=== PATIENT | female | born 1960 | race Caucasian/White ===

== ENCOUNTER → 2017-08-06 | Outpatient (CLI) | payer OTHER ==
--- NOTE | 2017-08-07 16:47 | WOMENS IMAGING REPORT ---
EXAM DESCRIPTION: 3D SCREENING MAMMO BILAT COMPLETED DATE/TIME: 08/06/2017 3:54 pm REASON FOR STUDY: ROUTINE SCREENING; Z12.31 Z12.31 ENCNTR SCREEN MAMMOGRAM FOR MALIGNANT NEOPLASM O F AN COMPARISON: 2011 to 2015 TECHNIQUE: Standard craniocaudal and mediolateral oblique views of each breast recorded using digita l acquisition and breast tomosynthesis. LIMITATIONS: None. FINDINGS: No masses, calcifications or architectural distortion. No areas of suspicion. Read with the assistance of CAD. .[facility] - R2 Cenova Version 1.3 .[facility] Imaging - R2 Cenova Version 1.3 .[facility] - R2 Cenova Version 2.4 .[facility] - R2 Cenova Version 2.4 .[facility] - R2 Log Check Scaler Version 9.2 IMPRESSION: NORMAL MAMMOGRAM. BIRADS 1. BREAST DENSITY: b. There are scattered areas of fibroglandular density. BIRAD: 1 NEGATIVE RECOMMENDATION: ROUTINE SCREENING COMMENT: The patient has been notified of the results by letter per SA requirements. Additional no tification policies are in place for contacting patient with suspicious or incomplete findings. Quality ID #[id number]: The [employer] recommends an annual screening mammogram for women aged 40 years or over. This facility utilizes a reminder system to ensure that all patients receive reminder letters, and/or direct phone calls for appointments. This includes reminders for routine scr eening mammograms, diagnostic mammograms, or other Breast Imaging Interventions when appropriate. Th is patient will be placed in the appropriate reminder system. The [employer] (ACR) has developed recommendations for screening MRI of the breast s in certain patient populations, to be used in conjunction with mammography. Breast MRI surveillanc e may be appropriate for women with more than 20% lifetime risk of developing breast cancer as deter mined by genetic testing, significant family history of the disease, or history of mantle radiation f or Hodgkins Disease. ACR Practice Guidelines 2008. DBT Technology DBT is a type of tomographic mammography. With conventional mammography, overlapping breast tissue ma y make lesions difficult to detect, even with good compression. DBT uses an x-ray tube that rotates a round the breast, taking images at different angles. These images are then combined to create thin sl ices of the breast that the radiologist can view as a 3D reconstruction. The [employer] unit can perform full-field digital mammograms (2D imaging); or DBT (3D imaging); or both, in a combination mode that quickly performs both the mammogram and the tomosynthesis scan while the breast is still compressed. PQRS 6045F: Fluoroscopic imaging is not utilized for breast tomosynthesis. TECHNICAL DOCUMENTATION: FINDING NUMBER: (1) ASSESSMENT: (1) JOB ID: [id number] [employer]- All Rights Reserved Reading location - IP/workstation name: [email or web address]
== END ==
LOC: WI 15:36
PROVIDERS: ATTEND Nurse Practitioner
DX: Z12.31 Encounter for screening mammogram for malignant neoplasm of breast (principal)
CPT/HCPCS: 77063; 77067

== ENCOUNTER 2019-04-08 10:04 | Observation (INO) | payer OTHER ==
[2019-04-08] MEDS ORDERED: ONDANSETRON HCL INJ/PF 4 MG/2 ML SDV IV ONE (11:20)
[2019-04-08] MEDS ORDERED: ACETAMINOPHEN 325 MG TABLET PO ONE (11:20)
--- NOTE | 2019-04-08 11:27 | ER Document Report ---
ED General - General Chief Complaint: Headache Stated Complaint: BLOOD PRESSURE ISSUES Time Seen by Provider: 04/08/19 11:09 Primary Care Provider: CHERRIE TOWNSEND FNP [Primary Care Provider] - Follow up as needed TRAVEL OUTSIDE OF THE [place] IN LAST 30 DAYS: No - HPI Notes: Patient is a 59-year-old female with a history of hypertension and hypercholesterolemia who presents complaining of right-sided facial pressure and headache that began initially at 230 yesterday afternoon. Patient states that the symptoms improved after a few hours, but returned last night. Patient s tates that she woke up this morning with continued pressure on the right side. She also has had decreased sensation to the right side of her body and some weakness noted to the arm and leg on the right side since since the HERNDON began. Patient states that this is not the worst headache of her life and did not start as a thunderclap. She does have light sensitivity associated. Patient states that she is able to eat and drink without difficulty. She is urinating normally and having normal bowel movements. Denies drug allergies. No recent illness. She is not on any blood thinning medications. No history of CVA, TIA, migraines, CAD, DVT, PE, DM. Denies any fever, head injury, neck pain, changes in speech/mentation/hearing, URI, sore throat, chest pain, palpitations, syncope, cough, shortness of breath, wheeze, dyspnea, abdominal pain, nausea/vomiting/diarrhea, urinary retention, dysuria, hematuria, loss of control of bowel or bladder, saddle anesthesia, muscle paralysis, or rash. - Related Data Allergies/Adverse Reactions: No Known Allergies Allergy (Verified 04/08/19 10:10) Past Medical History - Social History Smoking Status: Never Smoker Chew tobacco use (# tins/day): No Frequency of alcohol use: None Drug Abuse: None Family History: Reviewed & Not Pertinent Patient has suicidal ideation: No Patient has homicidal ideation: No Review of Systems - Review of Systems -: Yes All other systems reviewed and negative Physical Exam - Vital signs Vitals: Temp Pulse Resp BP Pulse Ox 98.6 F 86 16 140/76 H 98 04/08/19 10:07 04/08/19 10:07 04/08/19 10:07 04/08/19 10:07 04/08/19 10:07 - Notes Notes: PHYSICAL EXAMINATION: GENERAL: Well-appearing, well-nourished and in no acute distress. A&Ox4. Answers questions appropriately. HEAD: Atraumatic, normocephalic. Non-tender. EYES: Pupils equal round and reactive to light, extraocular movements intact, sclera anicteric, conjunctiva are normal. No nystagmus. vis luna intact. ENT: EAC clear b/l. TM's intact b/l without erythema, fluid, or perforation. Nares patent and without discharge. oropharynx clear without exudates. No tonsilar hypertrophy or erythema. Moist mucous membranes. No sinus tenderness. NECK: Normal range of motion, supple without lymphadenopathy. No rigidity/meningismus. No midline tenderness. LUNGS: Breath sounds clear to auscultation bilaterally and equal. No wheezes rales or rhonchi. HEART: Regular rate and rhythm without murmurs, rubs, gallops. ABDOMEN: Soft, nontender, nondistended abdomen. No guarding, no rebound. Normal bowel sounds present. No CVA tenderness bilaterally. Musculoskeletal: Ext's b/l: FROM to passive/active. Strength 4+/5 to the RUE/RLE vs 5+/5 to the left side. No deficits noted. No bony tenderness of extremities. Extremities: No cyanosis, clubbing, or edema b/l. Peripheral pulses 2+. Capillary refill less than 2 seconds. NEUROLOGICAL: NIH 1(for dec sensation) without noting the strength differences R weaker than left as drift is negative. GCS 15. Cranial nerves grossly intact. Normal speech. Reflexes 2+ b/l. LENCHO's negative. PSYCH: Normal mood, normal affect. SKIN: Warm, Dry, normal turgor, no rashes or lesions noted. Course - Re-evaluation Re-evalutation: 04/08/19 12:39 Re-evaluation, pt has improvement in sensation, but continues to have light head pressure and light sensitivity. Labs/imaging unremarkable. Vitals acceptable. 04/08/19 12:50 I did speak with Dr. Murray who will accept pt to [facility] for TIA w/u. Pt in agreement with plan. - Vital Signs Vital signs: Temp Pulse Resp BP Pulse Ox 98.6 F 86 16 140/76 H 98 04/08/19 10:07 04/08/19 10:07 04/08/19 10:07 04/08/19 10:07 04/08/19 10:07 - Laboratory Result Diagrams: 04/08/19 11:30 04/08/19 11:30 Laboratory results interpreted by me: 04/08/19 11:30 Glucose 173 H Discharge - Discharge Clinical Impression: TIA (transient ischemic attack) Headache Qualifiers: Headache type: unspecified Headache chronicity pattern: acute headache Intractability: not intractable Qualified Code(s): R51 - Headache Condition: Stable Disposition: ADMITTED INPATIENT Admitting Provider: Terri (Hospitalist) Unit Admitted: IMCU Referrals: CHERRIE TOWNSEND FNP [Primary Care Provider] - Follow up as needed
[2019-04-08 11:43] LABS: ABSOLUTE EOSINOPHILS # (AUTO) 0.1 10^3/uL (0.0-0.6); ABSOLUTE LYMPHOCYTES (AUTO) 1.6 10^3/uL (0.5-4.7); ABSOLUTE MONOCYTES (AUTO) 0.3 10^3/uL (0.1-1.4); ABSOLUTE NEUT (AUTO) 5.9 10^3/uL (1.7-8.2); BASOPHILS % (AUTO) 0.6 % (0-2); EOSINOPHILS % (AUTO) 0.8 % (0-6); HEMATOCRIT 41.7 % (36.0-47.0); HEMOGLOBIN 14.7 g/dL (12.0-15.5); LYMPHOCYTES % (AUTO) 20.7 % (13-45); MEAN CORPUSCULAR HEMOGLOBIN 30.9 pg (27.0-33.4); MEAN CORPUSCULAR HGB CONC 35.1 g/dL (32.0-36.0); MEAN CORPUSCULAR VOLUME 88 fl (80-97); MONOCYTES % (AUTO) 3.8 % (3-13); PLATELET COUNT 219 10^3/uL (150-450); RED BLOOD COUNT 4.74 10^6/uL (3.72-5.28); RED CELL DISTRIBUTION WIDTH 12.9 % (11.5-14.0); SEGMENTED NEUTROPHILS % (AUTO) 74.1 % (42-78); TOTAL CELLS COUNTED % (AUTO) 100 %
[2019-04-08 11:48] LABS: PROTHROMBIN TIME 13.2 SEC (11.4-15.4)
[2019-04-08 11:49] LABS: PARTIAL THROMBOPLASTIN TIME 26.6 SEC (23.5-35.8)
--- NOTE | 2019-04-08 11:56 | RADIOLOGY REPORT (SQ) ---
EXAM DESCRIPTION: CT HEAD WITHOUT COMPLETED DATE/TIME: 04/08/2019 11:44 am REASON FOR STUDY: left headache, feeling weak rt side COMPARISON: None. TECHNIQUE: Axial images acquired through the brain without intravenous contrast. Images reviewed wi th bone, brain and subdural windows. Additional sagittal and coronal reconstructions were generated. Images stored on PACS. All CT scanners at this facility use dose modulation, iterative reconstruction, and/or weight based d osing when appropriate to reduce radiation dose to as low as reasonably achievable (ALARA). [facility]: Dose Right [facility]: CareDose [facility]: Dose Right [facility]: Teradose 4D [facility]: Silentsoft RADIATION DOSE: CT Rad equipment meets quality standard of care and radiation dose reduction techniq ues were employed. CTDIvol: 53.2 mGy. DLP: 1070 mGy-cm. mGy. LIMITATIONS: None. FINDINGS: There is no acute intracranial hemorrhage, vascular territorial infarct, extra-axial fluid collection, mass effect, or midline shift. There is no effacement of cerebral sulci or basal subara chnoid cisterns. The wang-white matter differentiation is preserved. The caliber the ventricles is concordant with the degree of sulcation. The orbits and globes are intact. The paranasal sinuses are clear. There is no fracture of the calv arium. IMPRESSION: No acute intracranial abnormality. EVIDENCE OF ACUTE STROKE: NO. COMMENT: Quality ID # [id number]: Final reports with documentation of one or more dose reduction techniques (e.g., Automated exposure control, adjustment of the mA and/or kV according to patient size, use of iterative reconstruction technique) TECHNICAL DOCUMENTATION: JOB ID: [id number] [employer]- All Rights Reserved Reading location - IP/workstation name: [email or web address]-
[2019-04-08 12:03] LABS: ALBUMIN 4.5 g/dL (3.5-5.0); ALKALINE PHOSPHATASE 109 U/L (38-126); ANION GAP 9 (5-19); ASPARTATE AMINO TRANSFERASE 23 U/L (14-36); BILIRUBIN,DIRECT 0.2 mg/dL (0.0-0.4); BILIRUBIN,TOTAL 0.6 mg/dL (0.2-1.3); BLOOD UREA NITROGEN 18 mg/dL (7-20); CARBON DIOXIDE 26 mmol/L (22-30); CHLORIDE 106 mmol/L (98-107); GLUCOSE 173 mg/dL (75-110); POTASSIUM 4.5 mmol/L (3.6-5.0); TOTAL PROTEIN 7.7 g/dL (6.3-8.2)
[2019-04-08 13:43] LABS: APPEARANCE,URINE SLIGHTLY-CLOUDY; BILIRUBIN,URINE NEGATIVE (NEGATIVE); COLOR,URINE STRAW; GLUCOSE, URINE 500 mg/dL (NEGATIVE); KETONES,URINE NEGATIVE (NEGATIVE); PROTEIN,URINE NEGATIVE (NEGATIVE); URINE SPECIFIC GRAVITY 1.004; UROBILINOGEN,URINE NEGATIVE mg/dL (<2.0)
[2019-04-08] MEDS ORDERED: ONDANSETRON HCL INJ/PF 4 MG/2 ML SDV IV PRN (13:44)
[2019-04-08] MEDS ORDERED: TEMAZEPAM 7.5 MG CAPSULE PO PRN (13:44)
[2019-04-08] MEDS ORDERED: IPRATROPIUM/ALBUTEROL 0.5-2.5 MG/3 ML AMPUL NEB PRN (13:44)
[2019-04-08] MEDS ORDERED: MAG HYDROX/AL HYDROX/SIMETH SUSP 30 ML UDCUP PO PRN (13:44)
[2019-04-08] MEDS ORDERED: ACETAMINOPHEN 325 MG TABLET PO PRN (13:44)
[2019-04-08] MEDS ORDERED: PROMETHAZINE HCL INJ 25 MG/1 ML VIAL IV PRN (13:44)
[2019-04-08] MEDS ORDERED: OXYCODONE-ACETAMINOPHEN 5-325 MG TABLET PO PRN (13:44)
[2019-04-08] MEDS ORDERED: HYDRALAZINE HCL INJ/PF 20 MG/1 ML SDV IV PRN (13:48)
[2019-04-08] MEDS ORDERED: METOPROLOL TARTRATE PF/INJ 5 MG/5 ML SDV IV PRN (13:48)
[2019-04-08] MEDS ORDERED: HEPARIN SOD (PORCINE) 5,000 UNIT/ML 1 ML VIAL SUBCUT SCH (14:00)
[2019-04-08 14:22] LABS: CHOLESTEROL 261.56 mg/dL (0-200); TRIGLYCERIDES 251 mg/dL (<150)
[2019-04-08 14:34] LABS: DIRECT LDL 173 mg/dL (<100); VLDL CHOLESTEROL 50.2 mg/dL (10-31)
--- NOTE | 2019-04-08 15:11 | RADIOLOGY REPORT (SQ) ---
EXAM DESCRIPTION: MRA HEAD WITHOUT COMPLETED DATE/TIME: 04/08/2019 2:55 pm REASON FOR STUDY: Rt sided weakness and headache COMPARISON: None. TECHNIQUE: Axial 3-D obfu-am-aiowgw acquisition imaging performed through the brain in the area of t he [place] of [place]. Images reformatted using 3-D MIPS. LIMITATIONS: None. FINDINGS: SOURCE IMAGES: No unexpected findings on source images. No large masses. 3-D MIP: No aneurysm. No occlusions. No significant stenosis. OTHER: No other significant finding. IMPRESSION: NORMAL MRA OF THE [place] OF [place]. TECHNICAL DOCUMENTATION: JOB ID: [id number] [employer]- All Rights Reserved Reading location - IP/workstation name: [email or web address]
--- NOTE | 2019-04-08 15:15 | RADIOLOGY REPORT (SQ) ---
EXAM DESCRIPTION: MRI HEAD WITHOUT COMPLETED DATE/TIME: 04/08/2019 2:55 pm REASON FOR STUDY: Rt U/L weakness and Rt Sided headache COMPARISON: None. TECHNIQUE: Multiplanar imaging includes non-contrasted T1, T2, FLAIR, and diffusion with ADC map seq uences. Images stored on PACS. LIMITATIONS: None. FINDINGS: ANATOMY: No anomalies. Normal vascular flow voids. Pituitary fossa normal. CSF SPACES: Normal in size and contour. No hemorrhage. CEREBRUM: Sulci and gyri normal in size and contour. Normal white matter signal on FLAIR imaging. No evidence of hemorrhage, mass, or extraaxial fluid collection. POSTERIOR FOSSA: No signal alteration. No hemorrhage. No edema, masses or mass effect. Internal nadia tory canals, cerebello-pontine angles, mastoids normal. DIFFUSION IMAGING: Negative for acute or sub-acute infarction. ORBITS: No masses. Globes normal. PARANASAL SINUSES: No fluid levels. Mucosa normal. OTHER: No other significant finding. IMPRESSION: NORMAL MRI OF THE BRAIN WITHOUT INTRAVENOUS GADOLINIUM CONTRAST. EVIDENCE OF ACUTE STROKE: NO. TECHNICAL DOCUMENTATION: JOB ID: [id number] [employer]- All Rights Reserved Reading location - IP/workstation name: [email or web address]
[2019-04-08] MEDS: HEPARIN SOD (PORCINE) 5,000 UNIT/ML 1 ML VIAL SUBCUT SCH ×2 (15:46→21:21)
[2019-04-08] MEDS: NORMAL SALINE 1000 ML 1,000 ML IV PRN (15:46)
[2019-04-08] MEDS ORDERED: SUMATRIPTAN SUCCINATE 100 MG TABLET PO PRN (15:54)
--- NOTE | 2019-04-08 15:54 | PDOC H&P ---
History of Present Illness Admission Date/PCP: 04/08/19 12:54 ADRIANNE BARRERA History of Present Illness: JER MAXWELL is a 59 year old female past medical history of obesity, hypert ension, dyslipidemia, presenting to ED complaining of right-sided pressure-like headache initially started at 2:30 PM yesterday at work, associated with photophobia, right face, right upper and lower extremity numbness. Patient had recurrence of the same symptoms twice since yesterday. Was brought to ED by her friend, walked to the emergency department. Upon ED physician evaluation not a TPA candidate. CT head was negative for any acute abnormalities. Hospitalist consulted for admission. On my encounter patient is comfortably resting in bed, endorsing photophobia, right facial, right upper and lower extremity mild numbness, denies any vision changes, history of migraines, history of TIA, history of CVA, history of CAD, loss of balance, disequilibrium, lightheadedness, syncope, vertigo, shortness of breath, cough, chest pain, nausea, palpitation, diarrhea, abdominal pain, or any urinary symptoms. On physical examination patient seems to have significant photophobia bilaterally with right upper and lower extremity 4/5 strength, with decreased sensation to right face, right upper and lower extremity compared with the left side otherwise negative for any focal neurological deficit. No nystagmus, no loss of balance, Romberg negative. Past Medical History Cardiac Medical History: Reports: Hyperlipidema, Hypertension Social History Smoking Status: Former Smoker Cigarettes Packs Per Day: 2 Electronic Cigarette use?: No Number of Years Smokin Frequency of Alcohol Use: Social Hx Recreational Drug Use: No Drugs: None Hx Prescription Drug Abuse: No - Advance Directive Resuscitation Status: Full Code Family History Family History: Reviewed & Not Pertinent Parental Family History Reviewed: Yes Children Family History Reviewed: Yes Sibling(s) Family History Reviewed.: Yes Medication/Allergy Home Medications: Atorvastatin Calcium [Lipitor 40 mg Tablet] 40 mg PO QHS 04/08/19 Lisinopril/Hydrochlorothiazide [Lisinopril-Hctz 10-12.5 mg Tab] 1 each PO DAILY 04/08/19 Allergies/Adverse Reactions: No Known Allergies Allergy (Verified 04/08/19 10:10) Physical Exam Vital Signs: Temp Pulse Resp BP Pulse Ox 98.6 F 72 17 144/72 H 96 04/08/19 10:07 04/08/19 15:31 04/08/19 15:31 04/08/19 15:31 04/08/19 15:31 Intake & Output 04/07/19 04/08/19 04/09/19 06:59 06:59 06:59 Weight 96.4 kg General appearance: PRESENT: obese Head exam: PRESENT: atraumatic, normocephalic Eye exam: PRESENT: conjunctiva pink, EOMI, PERRLA, other - Photophobia.. ABSENT: scleral icterus Neck exam: ABSENT: carotid bruit, JVD, lymphadenopathy, thyromegaly Respiratory exam: PRESENT: clear to auscultation hilary. ABSENT: rales, rhonchi, wheezes Cardiovascular exam: PRESENT: RRR. ABSENT: diastolic murmur, rubs, systolic murmur GI/Abdominal exam: PRESENT: normal bowel sounds, soft. ABSENT: distended, guarding, mass, organolmegaly, rebound, tenderness Extremities exam: PRESENT: full ROM. ABSENT: calf tenderness, clubbing, pedal edema Neurological exam: PRESENT: alert, awake, oriented to person, oriented to place, oriented to time, oriented to situation, reflexes normal, CN II-XII grossly intact, motor sensory deficit - Right facial numbness, right upper and lower extremity strength 4/5. Skin exam: PRESENT: dry, intact, warm. ABSENT: cyanosis, rash Results Laboratory Results: 04/08/19 11:30 04/08/19 11:30 04/08/19 04/08/19 04/08/19 11:30 11:30 11:30 WBC 8.0 RBC 4.74 Hgb 14.7 Hct 41.7 MCV 88 MCH 30.9 MCHC 35.1 RDW 12.9 Plt Count 219 Seg Neutrophils % 74.1 Sodium 141.2 Potassium 4.5 Chloride 106 Carbon Dioxide 26 Anion Gap 9 BUN 18 Creatinine 0.60 Est GFR ( Amer) > 60 Glucose 173 H Calcium 10.0 Total Bilirubin 0.6 AST 23 Alkaline Phosphatase 109 Total Protein 7.7 Albumin 4.5 Triglycerides Cholesterol LDL Cholesterol Direct VLDL Cholesterol HDL Cholesterol TSH 0.27 L Urine Color Urine Appearance Urine pH Ur Specific [place] Urine Protein Urine Glucose (UA) Urine Ketones Urine Blood 10/29/19 10/29/19 11:30 12:54 WBC RBC Hgb Hct MCV MCH MCHC RDW Plt Count Seg Neutrophils % Sodium Potassium Chloride Carbon Dioxide Anion Gap BUN Creatinine Est GFR ( Amer) Glucose Calcium Total Bilirubin AST Alkaline Phosphatase Total Protein Albumin Triglycerides 251 H Cholesterol 261.56 H LDL Cholesterol Direct 173 H VLDL Cholesterol 50.2 H HDL Cholesterol 46 TSH Urine Color STRAW Urine Appearance SLIGHTLY-CLOUDY Urine pH 6.0 Ur Specific [place] 1.004 Urine Protein NEGATIVE Urine Glucose (UA) 500 H Urine Ketones NEGATIVE Urine Blood NEGATIVE Impressions: Brain MRI with MRA 04/08/19 00:00 IMPRESSION: NORMAL MRA OF THE [place] OF [place]. Head MRI 04/08/19 00:00 IMPRESSION: NORMAL MRI OF THE BRAIN WITHOUT INTRAVENOUS GADOLINIUM CONTRAST. EVIDENCE OF ACUTE STROKE: NO. Head CT 04/08/19 11:10 IMPRESSION: No acute intracranial abnormality. EVIDENCE OF ACUTE STROKE: NO. Assessment and Plan - Diagnosis (1) Migraine headache Qualifiers: Intractability: not intractable Is this a current diagnosis for this admission?: Yes Plan: Given negative CT head, negative MRI and MRA brain this is most likely migraine headaches. Given the fact the patient has hypertension and likely migraine headaches she could be started on propranolol for BP as well as migraine prophylaxis. Meanwhile admit to telemetry, PRN triptans if headache recurs. Outpatient neurology follow-up for further work-up and evaluation. (2) Obesity (BMI 35.0-39.9 without comorbidity) Is this a current diagnosis for this admission?: Yes Plan: TSH suppressed. Elevated lipid panel. Hemoglobin A1c 7.2%. Diet and lifestyle modification recommended. (3) Diabetes Qualifiers: Diabetes mellitus type: type 2 Is this a current diagnosis for this admission?: Yes Plan: Newly diagnosed. Hemoglobin A1c 7.2. We will start on basal, prandial and sliding scale insulin. Hypoglycemia protocol. Accu-Chek. Adjust dosage as needed. Diabetic education. Could be started on metformin as outpatient. Outpatient PCP and ophthalmology follow-up. Diet and lifestyle modification recommended. (4) Hypertension Is this a current diagnosis for this admission?: Yes Plan: Normotensive. Euvolemic. Restart home meds. Outpatient PCP follow-up. Adjust meds as needed. (5) Hyperlipidemia Is this a current diagnosis for this admission?: Yes Plan: ASCVD score of 13.8. Patient already on atorvastatin 40 mg p.o. nightly. Lipid panel still elevated. We will increase atorvastatin to 80 mg p.o. nightly. Outpatient PCP follow-up. (6) TIA (transient ischemic attack) Is this a current diagnosis for this admission?: Yes Plan: Given negative CT head, negative MRI, negative MRA this is most likely migraine headache. Admit to the ICU, high intensity statins, antiplatelets, optimize BP. Pending 2D carotid. Possible DC home tomorrow.
[2019-04-08] MEDS ORDERED: GLUCAGON,HUMAN RECOMB 1 MG INJ IM PRN (15:57)
[2019-04-08] MEDS ORDERED: DEXTROSE 50%-WATER 25 GM/50 ML DISP.SYRIN IV PRN ×2 (15:57)
[2019-04-08] MEDS ORDERED: DEXTROSE 40% GEL 15 GM TUBE PO PRN ×2 (15:57)
[2019-04-08 16:34] LABS: FREE T3 3.66 pg/mL (2.77-5.27); FREE T4 (FREE THYROXINE) 1.31 ng/dL (0.78-2.19)
[2019-04-08] MEDS: INSULIN LISPRO 100 UNIT/ML 3 ML VIAL SUBCUT SCH ×2 (17:21→21:22)
[2019-04-08] MEDS: METFORMIN HCL 500 MG TABLET PO SCH (17:33)
[2019-04-08] MEDS: PROPRANOLOL HCL 40 MG TABLET PO SCH ×2 (17:33→21:20)
[2019-04-08] MEDS: PANTOPRAZOLE SODIUM 40 MG TABLET.DR PO SCH (17:33)
[2019-04-08] MEDS ORDERED: ATORVASTATIN CALCIUM 40 MG TABLET PO SCH ×2 (22:00)
[2019-04-09] MEDS: NORMAL SALINE 1000 ML 1,000 ML IV PRN (04:44)
[2019-04-09] MEDS: HEPARIN SOD (PORCINE) 5,000 UNIT/ML 1 ML VIAL SUBCUT SCH ×2 (06:01→13:10)
[2019-04-09] MEDS: PANTOPRAZOLE SODIUM 40 MG TABLET.DR PO SCH (06:01)
[2019-04-09 06:19] LABS: ABSOLUTE EOSINOPHILS # (AUTO) 0.1 10^3/uL (0.0-0.6); ABSOLUTE MONOCYTES (AUTO) 0.4 10^3/uL (0.1-1.4); ABSOLUTE NEUT (AUTO) 3.9 10^3/uL (1.7-8.2); BASOPHILS % (AUTO) 0.4 % (0-2); HEMATOCRIT 39.7 % (36.0-47.0); HEMOGLOBIN 13.8 g/dL (12.0-15.5); LYMPHOCYTES % (AUTO) 31.1 % (13-45); MEAN CORPUSCULAR HGB CONC 34.7 g/dL (32.0-36.0); MEAN CORPUSCULAR VOLUME 89 fl (80-97); MONOCYTES % (AUTO) 5.7 % (3-13); PLATELET COUNT 192 10^3/uL (150-450); RED BLOOD COUNT 4.44 10^6/uL (3.72-5.28); RED CELL DISTRIBUTION WIDTH 12.8 % (11.5-14.0); SEGMENTED NEUTROPHILS % (AUTO) 60.8 % (42-78); TOTAL CELLS COUNTED % (AUTO) 100 %; WHITE BLOOD COUNT 6.4 10^3/uL (4.0-10.5)
[2019-04-09 06:43] LABS: ANION GAP 6 (5-19); BLOOD UREA NITROGEN 15 mg/dL (7-20); CARBON DIOXIDE 26 mmol/L (22-30); CHLORIDE 107 mmol/L (98-107); GLUCOSE 183 mg/dL (75-110); POTASSIUM 4.2 mmol/L (3.6-5.0)
[2019-04-09] MEDS: INSULIN LISPRO 100 UNIT/ML 3 ML VIAL SUBCUT SCH ×2 (08:21→13:03)
[2019-04-09] MEDS: METFORMIN HCL 500 MG TABLET PO SCH (08:45)
--- NOTE | 2019-04-09 08:53 | RADIOLOGY REPORT (SQ) ---
EXAM DESCRIPTION: CAROTID DOPPLER COMPLETED DATE/TIME: 04/08/2019 6:49 pm REASON FOR STUDY: TIA COMPARISON: None. TECHNIQUE: Grayscale ultrasound, Doppler velocity and spectra, and color Doppler images acquired of the extra-cranial carotid and vertebral arteries. Images stored on PACS. LIMITATIONS: None. FINDINGS: RIGHT CAROTID CCA Velocities: Within normal limits. ICA Velocities Peak systolic 0.62 m/s. End diastolic 0.20 m/s. Proximal ICA/CCA peak systolic ratio 0.8. Mild soft plaque. No significant stenosis. LEFT CAROTID CCA Velocities: Within normal limits. ICA Velocities Peak systolic 0.78 m/s. End diastolic 0.25 m/s. Proximal ICA/CCA peak systolic ratio 1.0. Mild soft plaque. No significant stenosis. VERTEBRAL ARTERIES: Antegrade flow. Normal waveforms. SUBCLAVIAN ARTERIES: No finding. OTHER: No other significant finding. IMPRESSION: NO HEMODYNAMICALLY SIGNIFICANT STENOSIS. COMMENT: Quality ID #[id number]: Velocity criteria are extrapolated from the diameter data as defined by t he Society of Radiologists in Ultrasound Consensus Conference. Radiology 2003: 229; 340-346. TECHNICAL DOCUMENTATION: JOB ID: [id number] [employer]- All Rights Reserved Reading location - IP/workstation name: [email or web address]
[2019-04-09] MEDS ORDERED: LISINOPRIL 10 MG TABLET PO SCH (10:00)
[2019-04-09 10:38] VITALS: BP 106/61
[2019-04-09] MEDS: PROPRANOLOL HCL 40 MG TABLET PO SCH (10:44)
[2019-04-09] MEDS ORDERED: ATORVASTATIN CALCIUM 80 MG TABLET PO SCH (22:00)
--- NOTE | 2019-04-12 15:12 | PDOC DISCHARGE SUMMARY ---
Impression - Admit/DC Date/PCP Admission Date/Primary Care Provider: 04/08/19 12:54 ADRIANNE BARRERA Discharge Date: 04/09/19 - Discharge Diagnosis (1) Migraine headache Is this a current diagnosis for this admission?: Yes (2) Obesity (BMI 35.0-39.9 without comorbidity) Is this a current diagnosis for this admission?: Yes (3) Diabetes Is this a current diagnosis for this admission?: Yes (4) Hypertension Is this a current diagnosis for this admission?: Yes (5) Hyperlipidemia Is this a current diagnosis for this admission?: Yes (6) TIA (transient ischemic attack) Is this a current diagnosis for this admission?: Yes - Additional Information Resuscitation Status: Full Code Discharge Diet: Diabetic Discharge Activity: Activity As Tolerated Referrals: CHERRIE TOWNSEND FNP [Primary Care Provider] - 04/18/19 2:30 pm ( ) UNRULY RODGERS MD [NO [facility] MD] - 04/15/19 1:30 pm Prescriptions: Aspirin [Adult Low Dose Aspirin EC] 81 mg PO DAILY 30 Days #30 tablet. Sumatriptan Succinate [Imitrex 100 mg Tablet] 100 mg PO DAILYP PRN 7 Days #7 tablet PRN Reason: Cephalexin Monohydrate [Keflex 500 mg Capsule] 500 mg PO BID 5 Days #10 capsule Atorvastatin Calcium [Lipitor] 80 mg PO QHS 30 Days #30 tablet Metformin HCl 500 mg PO BID 30 Days #60 tablet Lisinopril [Prinivil 10 mg Tablet] 10 mg PO DAILY 30 Days #30 tablet Propranolol HCl 60 mg PO BID 30 Days #60 tablet Home Medications: Aspirin [Adult Low Dose Aspirin EC] 81 mg PO DAILY 30 Days #30 tablet. 04/09/19 Atorvastatin Calcium [Lipitor] 80 mg PO QHS 30 Days #30 tablet 04/09/19 Cephalexin Monohydrate [Keflex 500 mg Capsule] 500 mg PO BID 5 Days #10 capsule 04/09/19 Lisinopril [Prinivil 10 mg Tablet] 10 mg PO DAILY 30 Days #30 tablet 04/09/19 Metformin HCl 500 mg PO BID 30 Days #60 tablet 04/09/19 Metformin HCl [Glucophage 500 mg Tablet] 500 mg PO BIDACBS 30 Days #60 tablet 04/09/19 Propranolol HCl 60 mg PO BID 30 Days #60 tablet 04/09/19 Sumatriptan Succinate [Imitrex 100 mg Tablet] 100 mg PO DAILYP PRN 7 Days #7 tablet 04/09/19 History of Present Illiness History of Present Illness: JER MAXWELL is a 59 year old female past medical history of obesity, hypertension, dyslipidemia, presenting to ED complaining of right-sided pressure-like headache initially started at 2:30 PM yesterday at work, associated with photophobia, right face, right upper and lower extremity numbness. Patient had recurrence of the same symptoms twice since yesterday. Was brought to ED by her friend, walked to the emergency department. Upon ED physician evaluation not a TPA candidate. CT head was negative for any acute abnormalities. Hospitalist consulted for admission. On my encounter patient is comfortably resting in bed, endorsing photophobia, right facial, right upper and lower extremity mild numbness, denies any vision changes, history of migraines, history of TIA, history of CVA, history of CAD, loss of balance, disequilibrium, lightheadedness, syncope, vertigo, shortness of breath, cough, chest pain, nausea, palpitation, diarrhea, abdominal pain, or any urinary symptoms. On physical examination patient seems to have significant photophobia bilaterally with right upper and lower extremity 4/5 strength, with decreased sensation to right face, right upper and lower extremity compared with the left side otherwise negative for any focal neurological deficit. No nystagmus, no loss of balance, Romberg negative. Hospital Course Hospital Course: Assessment and Plan (1) Migraine headache Given patient's presentation of hemicrania, throbbing headache, photophobia and nausea and absence of nuchal rigidity and negative CT head, MRI/MRA head and 2D carotid patient most likely has atypical migraine headache. Patient was started on low-dose propranolol to be uptitrated as outpatient by neurologist and was given triptan as needed for abortive therapy. Unfortunately no neurology consult available at [facility]. Neurology follow-up was arranged for patient as outpatient. (2) Obesity (BMI 35.0-39.9 without comorbidity) TSH suppressed, T3-T4 WNL. Abnormal lipid panel. Hemoglobin A1c 7.2%. Diet and lifestyle modification recommended. (3) Diabetes Newly diagnosed. Hemoglobin A1c 7.2. Was a started on start on basal, prandial and sliding scale insulin. Hypoglycemia protocol. Accu-Chek. Adjust dosage as needed. Diabetic education was provided. Was a started on low-dose metformin and asked to titrate up to 2000 twice daily as tolerated. An appointment was arranged with her PCP as outpatient. Diet and lifestyle modification was recommended. (4) Hypertension Normotensive. Euvolemic. Start home meds. Medications adjusted. Outpatient PCP follow-up. (5) Hyperlipidemia ASCVD score of 13.8. Patient already on atorvastatin 40 mg p.o. nightly. No lipid panel still abnormal. Atorvastatin was increased 80 mg p.o. nightly. Diet and lifestyle modification recommended. Outpatient PCP follow-up. (6) TIA (transient ischemic attack) Very unlikely given negative CT head, negative MRI, negative MRA and negative 2D carotids. Was admitted to [facility], started on high intensity statin, antiplatelets, optimize BP, PT/OT and ST. Negative for any focal neurological deficit. Right lower extremity weakness resolved. Was discharged on high intensity statins and antiplatelets. Physical Exam Vital Signs: Temp Pulse Resp BP Pulse Ox 97.9 F 65 16 106/61 94 04/09/19 16:57 04/09/19 16:57 04/09/19 16:57 04/09/19 06:58 04/09/19 16:57 General appearance: PRESENT: no acute distress, obese, well-developed, well- nourished Head exam: PRESENT: atraumatic, normocephalic Eye exam: PRESENT: conjunctiva pink, EOMI, PERRLA. ABSENT: scleral icterus Ear exam: PRESENT: normal external ear exam Mouth exam: PRESENT: moist, tongue midline Neck exam: ABSENT: carotid bruit, JVD, lymphadenopathy, thyromegaly Respiratory exam: PRESENT: clear to auscultation hilary. ABSENT: rales, rhonchi, wheezes Cardiovascular exam: PRESENT: RRR. ABSENT: diastolic murmur, rubs, systolic murmur Pulses: PRESENT: normal dorsalis pedis pul Vascular exam: PRESENT: normal capillary refill GI/Abdominal exam: PRESENT: normal bowel sounds, soft. ABSENT: distended, guarding, mass, organolmegaly, rebound, tenderness Rectal exam: PRESENT: deferred Extremities exam: PRESENT: full ROM. ABSENT: calf tenderness, clubbing, pedal edema Neurological exam: PRESENT: alert, awake, oriented to person, oriented to place, oriented to time, oriented to situation, CN II-XII grossly intact. ABSENT: motor sensory deficit Psychiatric exam: PRESENT: appropriate affect, normal mood. ABSENT: homicidal ideation, suicidal ideation Skin exam: PRESENT: dry, intact, warm. ABSENT: cyanosis, rash Results Laboratory Results: WBC 6.4 10^3/uL (4.0-10.5) 04/09/19 05:57 RBC 4.44 10^6/uL (3.72-5.28) 04/09/19 05:57 Hgb 13.8 g/dL (12.0-15.5) 04/09/19 05:57 Hct 39.7 % (36.0-47.0) 04/09/19 05:57 MCV 89 fl (80-97) 04/09/19 05:57 MCH 31.0 pg (27.0-33.4) 04/09/19 05:57 MCHC 34.7 g/dL (32.0-36.0) 04/09/19 05:57 RDW 12.8 % (11.5-14.0) 04/09/19 05:57 Plt Count 192 10^3/uL (150-450) 04/09/19 05:57 Lymph % (Auto) 31.1 % (13-45) 04/09/19 05:57 [place] % (Auto) 5.7 % (3-13) 04/09/19 05:57 Eos % (Auto) 2.0 % (0-6) 04/09/19 05:57 Baso % (Auto) 0.4 % (0-2) 04/09/19 05:57 Absolute Neuts (auto) 3.9 10^3/uL (1.7-8.2) 04/09/19 05:57 Absolute Lymphs (auto) 2.0 10^3/uL (0.5-4.7) 04/09/19 05:57 Absolute Monos (auto) 0.4 10^3/uL (0.1-1.4) 04/09/19 05:57 Absolute Eos (auto) 0.1 10^3/uL (0.0-0.6) 04/09/19 05:57 Absolute Basos (auto) 0.0 10^3/uL (0.0-0.2) 04/09/19 05:57 Seg Neutrophils % 60.8 % (42-78) 04/09/19 05:57 PT 13.2 SEC (11.4-15.4) 04/08/19 11:30 INR 1.00 04/08/19 11:30 APTT 26.6 SEC (23.5-35.8) 04/08/19 11:30 Sodium 139.1 mmol/L (137-145) 04/09/19 05:57 Potassium 4.2 mmol/L (3.6-5.0) 04/09/19 05:57 Chloride 107 mmol/L (98-107) 04/09/19 05:57 Carbon Dioxide 26 mmol/L (22-30) 04/09/19 05:57 Anion Gap 6 (5-19) 04/09/19 05:57 BUN 15 mg/dL (7-20) 04/09/19 05:57 Creatinine 0.65 mg/dL (0.52-1.25) 04/09/19 05:57 Est GFR ( Amer) > 60 (>60) 04/09/19 05:57 Est GFR (MDRD) Non-Af > 60 (>60) 04/09/19 05:57 Glucose 183 mg/dL (75-110) H 04/09/19 05:57 POC Glucose 157 mg/dL (70-110) H 04/09/19 12:57 Hemoglobin A1c % 7.2 % (4.7-6.0) H 04/08/19 11:30 Calcium 9.0 mg/dL (8.4-10.2) 04/09/19 05:57 Magnesium 2.0 mg/dL (1.6-2.3) 04/09/19 05:57 Total Bilirubin 0.6 mg/dL (0.2-1.3) 04/08/19 11:30 Direct Bilirubin 0.2 mg/dL (0.0-0.4) 04/08/19 11:30 Neonat Total Bilirubin Not Reportable 04/08/19 11:30 Neonat Direct Bilirubin Not Reportable 04/08/19 11:30 Neonat Indirect Bili Not Reportable 04/08/19 11:30 AST 23 U/L (14-36) 04/08/19 11:30 ALT 38 U/L (<35) 04/08/19 11:30 Alkaline Phosphatase 109 U/L (38-126) 04/08/19 11:30 Total Protein 7.7 g/dL (6.3-8.2) 04/08/19 11:30 Albumin 4.5 g/dL (3.5-5.0) 04/08/19 11:30 Triglycerides 251 mg/dL (<150) H 04/08/19 11:30 Cholesterol 261.56 mg/dL (0-200) H 04/08/19 11:30 LDL Cholesterol Direct 173 mg/dL (<100) H 04/08/19 11:30 VLDL Cholesterol 50.2 mg/dL (10-31) H 04/08/19 11:30 HDL Cholesterol 46 mg/dL (>40) 04/08/19 11:30 TSH 0.27 uIU/mL (0.47-4.68) L 04/08/19 11:30 Free T4 1.31 ng/dL (0.78-2.19) 04/08/19 11:30 Free T3 pg/mL 3.66 pg/mL (2.77-5.27) 04/08/19 11:30 Urine Color STRAW 04/08/19 12:54 Urine Appearance SLIGHTLY-CLOUDY 04/08/19 12:54 Urine pH 6.0 (5.0-9.0) 04/08/19 12:54 Ur Specific Wallace 1.004 04/08/19 12:54 Urine Protein NEGATIVE mg/dL (NEGATIVE) 04/08/19 12:54 Urine Glucose (UA) 500 mg/dL (NEGATIVE) H 04/08/19 12:54 Urine Ketones NEGATIVE mg/dL (NEGATIVE) 04/08/19 12:54 Urine Blood NEGATIVE (NEGATIVE) 04/08/19 12:54 Urine Nitrite (Reflex) POSITIVE (NEGATIVE) H 04/08/19 12:54 Urine Bilirubin NEGATIVE (NEGATIVE) 04/08/19 12:54 Urine Urobilinogen NEGATIVE mg/dL (<2.0) 04/08/19 12:54 Leukocyte Esterase Rfl NEGATIVE (NEGATIVE) 04/08/19 12:54 Urine Bacteria (Auto) 3+ /HPF 04/08/19 12:54 Urine WBC (Reflex) 5 /HPF 04/08/19 12:54 Squamous Epi Cells Auto FEW /HPF 04/08/19 12:54 Urine Ascorbic Acid NEGATIVE (NEGATIVE) 04/08/19 12:54 Impressions: Brain MRI with MRA 04/08/19 00:00 IMPRESSION: NORMAL MRA OF THE [place] OF [place]. Head MRI 04/08/19 00:00 IMPRESSION: NORMAL MRI OF THE BRAIN WITHOUT INTRAVENOUS GADOLINIUM CONTRAST. EVIDENCE OF ACUTE STROKE: NO. Head CT 04/08/19 11:10 IMPRESSION: No acute intracranial abnormality. EVIDENCE OF ACUTE STROKE: NO. Carotid Doppler Study 04/08/19 13:43 IMPRESSION: NO HEMODYNAMICALLY SIGNIFICANT STENOSIS. Plan Health Concerns: Obesity, newly diagnosed diabetes. Plan of Treatment: Started metformin, diet and lifestyle defecation recommended. Time Spent: Greater than 30 Minutes Stroke Is this a Stroke Patient?: No Acute Heart Failure - Is this a Heart Failure Patient?: No
== END 2019-04-09 20:00 | disposition home or self-care (01) ==
LOC: ER 10:04 → INTOOBSV 12:54 → EH 12:54 → 3S 15:09
PROVIDERS: ADMIT Internal Medicine; ATTEND Internal Medicine
DX: G43.909 Migraine, unspecified, not intractable, without status migrainosus (principal); E66.9 Obesity, unspecified; Z68.39 Body mass index [BMI] 39.0-39.9, adult; E11.9 Type 2 diabetes mellitus without complications; I10 Essential (primary) hypertension; E78.5 Hyperlipidemia, unspecified; G45.9 Transient cerebral ischemic attack, unspecified; Z79.82 Long term (current) use of aspirin; Z79.84 Long term (current) use of oral hypoglycemic drugs; Z87.891 Personal history of nicotine dependence; Z79.899 Other long term (current) drug therapy; R29.701 NIHSS score 1
CPT/HCPCS: 99284; 96374; 36415 ×2; 87086; 84439; 82962 ×2; 83735; 84443; 85025 ×2; 85610; 85730; 87088; 80048; 80053; 81001; 87186; 84481; 83036; 80061; 93880; 70551; 70544; 70450; 97161; G0378 ×3; J1644; J1815; J3490 ×4; J2405; J7030 ×2